=== PATIENT | female | born 1960 | race Caucasian/White ===

== ENCOUNTER → 2023-08-08 08:49 | Outpatient (REF) | payer BC, SELFPAY ==
[2023-08-08 09:54] LABS: % Basophils 0.8 % (0-2); % Eosinophils 4.7 % (0-6); % Immature Granulocytes 0.3 % (0-0.5); % Lymphocytes 26.3 % (20.5-51.1); % Monocytes 6.5 % (1.7-9.3); % Neutrophils 61.4 % (42.2-75.2); Absolute Basophils 0.1 10^3/uL (0-0.2); Absolute Eosinophils 0.3 10^3/uL (0-0.7); Absolute Lymphocytes 1.9 10^3/uL (1.2-3.4); Absolute Monocytes 0.5 10^3/uL (0.1-0.6); Absolute Neutrophils 4.5 10^3/uL (1.4-6.5); Hematocrit 48.2 % (37.0-47.0); Hemoglobin 15.7 g/dL (12.0-16.0); Mean Corp Hgb Conc. 32.6 g/dL (33.0-37.0); Mean Corpuscular Hgb 29.3 pg (27.0-31.0); Mean Corpuscular Volume 89.9 fL (81.0-99.0); Mean Platelet Volume 10.7 fL (7.4-10.4); Nucleated Red Blood Cells % 0 %; Platelet Count 181 10^3/uL (130-400); Red Blood Cell Count 5.36 10^6/uL (4.20-5.40); White Blood Cell Count 7.3 10^3/uL (4.8-10.8)
[2023-08-08 10:20] LABS: ALT (SGPT) 24 U/L (0-35); AST (SGOT) 28 U/L (14-36); Albumin 4.1 g/dl (3.5-5.0); Alkaline Phosphatase 145 U/L (38-126); Blood Urea Nitrogen 18 mg/dl (7-17); Calcium 9.6 mg/dl (8.4-10.2); Carbon Dioxide 26 mmol/L (22-30); Chloride 104 mmol/L (98-107); Glucose 151 mg/dl (70-99); HDL Cholesterol 59 mg/dl; LDL Cholesterol, Calculated 142 mg/dl; Potassium 4.1 mmol/L (3.5-5.1); Sodium 139 mmol/L (135-145); Total Bilirubin 0.6 mg/dl (0.2-1.3); Total Cholesterol 244 mg/dl (50-199); Total Protein 7.2 g/dl (6.3-8.2); Triglyceride 218 mg/dl (10-149); Uric Acid 8.5 mg/dl (2.5-6.2); Very Low Density Lipoprotein 43 mg/dl (0-30); eGFR > 60.00
[2023-08-08 10:48] LABS: TSH Reflex To Free T4 2.46 uIU/ml (0.47-4.68)
[2023-08-08 12:04] LABS: Microalbumin, Random Urine 3.1 mg/dl (0.6-1.7); Microalbumin/creatinine Ratio 36.1 mg/g
== END ==
LOC: REG 08:49
PROVIDERS: ATTENDING PHYSICIAN Nurse Practitioner Family
DX: Z00.00 Encounter for general adult medical examination without abnormal findings (principal); E03.9 Hypothyroidism, unspecified; E11.65 Type 2 diabetes mellitus with hyperglycemia; M1A.00X0 Idiopathic chronic gout, unspecified site, without tophus (tophi)
CPT/HCPCS: 36415; 80053; 80061; 82043; 82570; 83036; 84443; 84550; 85025

== ENCOUNTER → 2023-11-05 08:49 | Outpatient (REF) | payer BC, SELFPAY ==
[2023-11-05 10:30] LABS: Glycohemoglobin (HgbA1c) 7.1 % (4.0-5.6)
[2023-11-05 11:50] LABS: Blood Urea Nitrogen 23 mg/dl (7-17); Calcium 9.4 mg/dl (8.4-10.2); Carbon Dioxide 30 mmol/L (22-30); Chloride 105 mmol/L (98-107); Glucose 161 mg/dl (70-99); HDL Cholesterol 46 mg/dl; LDL Cholesterol, Calculated 117 mg/dl; Potassium 4.5 mmol/L (3.5-5.1); Sodium 140 mmol/L (135-145); Total Cholesterol 225 mg/dl (50-199); Triglyceride 313 mg/dl (10-149); Very Low Density Lipoprotein 62 mg/dl (0-30); eGFR > 60.00
[2023-11-05 12:15] LABS: TSH Reflex To Free T4 3.18 uIU/ml (0.47-4.68)
== END ==
LOC: REG 08:49
PROVIDERS: ATTENDING PHYSICIAN Nurse Practitioner Family
DX: E11.65 Type 2 diabetes mellitus with hyperglycemia (principal); E03.9 Hypothyroidism, unspecified; E66.9 Obesity, unspecified; Z00.00 Encounter for general adult medical examination without abnormal findings; Z71.89 Other specified counseling; E78.2 Mixed hyperlipidemia
CPT/HCPCS: 36415; 80048; 80061; 83036; 84443

== ENCOUNTER → 2024-02-03 08:39 | Outpatient (REF) | payer BC, SELFPAY ==
[2024-02-03 10:17] LABS: ALT (SGPT) 18 U/L (0-35); AST (SGOT) 20 U/L (14-36); Albumin 4.3 g/dl (3.5-5.0); Alkaline Phosphatase 128 U/L (38-126); Blood Urea Nitrogen 16 mg/dl (7-17); Calcium 9.3 mg/dl (8.4-10.2); Carbon Dioxide 25 mmol/L (22-30); Chloride 103 mmol/L (98-107); Glucose 162 mg/dl (70-99); HDL Cholesterol 58 mg/dl; LDL Cholesterol, Calculated 82 mg/dl; Potassium 4.5 mmol/L (3.5-5.1); Sodium 142 mmol/L (135-145); Total Bilirubin 0.4 mg/dl (0.2-1.3); Total Cholesterol 181 mg/dl (50-199); Total Protein 7.1 g/dl (6.3-8.2); Triglyceride 208 mg/dl (10-149); Uric Acid 8.1 mg/dl (2.5-6.2); Very Low Density Lipoprotein 41 mg/dl (0-30); eGFR > 60.00
[2024-02-03 10:27] LABS: Glycohemoglobin (HgbA1c) 7.3 % (4.0-5.6)
[2024-02-03 10:34] LABS: Microalbumin, Random Urine 1.8 mg/dl (0.6-1.7)
[2024-02-03 10:43] LABS: TSH Reflex To Free T4 0.83 uIU/ml (0.47-4.68)
== END ==
LOC: REG 08:39
PROVIDERS: ATTENDING PHYSICIAN Nurse Practitioner Family
DX: E11.65 Type 2 diabetes mellitus with hyperglycemia (principal); E78.2 Mixed hyperlipidemia; M1A.00X0 Idiopathic chronic gout, unspecified site, without tophus (tophi); E03.9 Hypothyroidism, unspecified; Z71.89 Other specified counseling; Z68.39 Body mass index [BMI] 39.0-39.9, adult; E66.9 Obesity, unspecified
CPT/HCPCS: 36415; 80053; 80061; 82043; 82570; 83036; 84443; 84550

== ENCOUNTER → 2024-10-01 08:48 | Outpatient (REF) | payer BC, SELFPAY ==
[2024-10-01 09:31] LABS: Hematocrit 46.5 % (37.0-47.0); Hemoglobin 15.3 g/dL (12.0-16.0); Mean Corp Hgb Conc. 32.9 g/dL (33.0-37.0); Mean Corpuscular Volume 86.9 fL (81.0-99.0); Nucleated Red Blood Cells % 0 %; Platelet Count 178 10^3/uL (130-400); Red Cell Dist. Width 12.9 % (11.5-14.5)
[2024-10-01 10:16] LABS: ALT (SGPT) 14 U/L (0-35); AST (SGOT) 17 U/L (14-36); Albumin 4.2 g/dl (3.5-5.0); Alkaline Phosphatase 114 U/L (38-126); Blood Urea Nitrogen 17 mg/dl (7-17); Calcium 9.4 mg/dl (8.4-10.2); Carbon Dioxide 26 mmol/L (22-30); Chloride 105 mmol/L (98-107); Glucose 162 mg/dl (70-99); HDL Cholesterol 52 mg/dl; LDL Cholesterol, Calculated 55 mg/dl; Potassium 4.3 mmol/L (3.5-5.1); Sodium 137 mmol/L (135-145); Total Protein 7.0 g/dl (6.3-8.2); Uric Acid 8.2 mg/dl (2.5-6.2); Very Low Density Lipoprotein 46 mg/dl (0-30); eGFR > 60.00
[2024-10-01 10:25] LABS: Microalb - Urine Creatinine 62.700 mg/dl
[2024-10-01 10:30] LABS: Microalbumin, Random Urine 1.8 mg/dl (0.6-1.7)
[2024-10-01 12:10] LABS: Glycohemoglobin (HgbA1c) 7.3 % (4.0-5.6)
== END ==
LOC: REG 08:48
PROVIDERS: ATTENDING PHYSICIAN Physician Assistant Medical
DX: E11.65 Type 2 diabetes mellitus with hyperglycemia (principal); Z00.01 Encounter for general adult medical examination with abnormal findings; M1A.00X0 Idiopathic chronic gout, unspecified site, without tophus (tophi); E03.9 Hypothyroidism, unspecified; E78.2 Mixed hyperlipidemia
CPT/HCPCS: 36415; 80053; 80061; 82043; 82570; 83036; 84443; 84550; 85025